=== PATIENT | male | born 1995 | race Caucasian/White ===

== ENCOUNTER 2018-03-29 17:18 | Emergency (ER) | payer OTHER ==
[2018-03-29 17:22] VITALS: BP 107/68; PULSE 71; TEMP 98.3; BMI 29.8
--- NOTE | 2018-03-29 17:44 | PDOC ---
Suture Removal/Wound Check HPI - History of Present Illness Chief Complaint: Suture/Staple Removal(Here) Stated Complaint: SUTURE REMOVAL HERE Time Seen by Provider: 03/29/18 17:30 History Source: Yes: Patient Exam Limitations: Yes: Clinical Condition Treated at: [facility] ED Date of Last ED visit: 03/23/18 - Previous ED Treatment Type of procedure performed on last visit: Yes: Laceration Repair Tetanus Immunization: Yes: Up to Date Antibiotics Prescribed: Yes - Onset of Previous Treatment Date of Occurence: 03/23/18 Select one - (for the option above): Days (patient present for suture removal 1day early than instructed due to work with laceration to back of left hand requiring 8 suture placement 6 days ago. Denies redness, drainage or discharge from wound. Denies pain now) Past History - Past Medical History Allergies/Adverse Reactions: Allergies Allergy/AdvReac Type Severity Reaction Status Date / Time No Known Allergies Allergy Verified 03/29/18 17:22 Home Medications: Ambulatory Orders NK [No Known Home Medication] 03/23/18 COPD: No - Immunization History Immunization Up to Date: Yes - Suicide/Smoking/Psychosocial Hx Smoking History: Never smoked Suture Removal/Wound Check PE - Physical Exam Laceration/Wound Check Symptoms: reports: None Current Severity Level: None Maximum Severity Level: None Pain Localization: None Location of Laceration/Wound: left: Hand (dorsal aspect of hand) Pain Radiation: None *Review of Systems - Review of Systems Able to Perform ROS?: Yes Constitutional: No: Chills, Fever HEENTM: No: Symptoms Reported Respiratory: No: Symptoms reported Cardiac (ROS): No: Symptoms Reported ABD/GI: No: Symptoms Reported Musculoskeletal: No: Joint Swelling, Muscle Pain (left hand), Muscle Weakness *Physical Exam - Vital Signs Last Vital Signs Temp Pulse Resp BP Pulse Ox 98.3 F 71 18 107/68 99 03/29/18 17:19 03/29/18 17:19 03/29/18 17:19 03/29/18 17:19 03/29/18 17:19 - Physical Exam Comments: 03/29/18 17:50 GENERAL: Well developed, well nourished. Awake and alert. No acute distress. CARDIOVASCULAR: Regular rate and rhythm. No murmurs, rubs, or gallops. PULMONARY: No evidence of respiratory distress. Lungs clear to auscultation bilaterally. No wheezing, rales or rhonchi. ABDOMINAL: Soft. Non-tender. Non-distended. No rebound or guarding. No organomegaly. Normoactive bowel sounds MUSCULOSKELETAL : Well healing 3 cm laceration with [address] to dorsal aspects of left hand. No erythema or wound dehiscence. No evidence of wound infection to area. Bony deformities EXTREMITIES: No cyanosis. No clubbing. No edema. No calf tenderness. SKIN: Well healing 3 cm laceration with [address] to dorsal aspects of left hand. No erythema or wound dehiscence. No evidence of wound infection to area. NEUROLOGICAL: Alert, awake, appropriate. No motor deficits in the lower extremities. Gait is normal without ataxia. PSYCHIATRIC: Cooperative. Good eye contact. Appropriate mood and affect. General Appearance: Yes: Nourished, Appropriately Dressed. No: Apparent Distress Medical Decision Making - Medical Decision Making 03/29/18 17:52 Patient with no sig Past medical history presented for suture removal status post presenting 6 days ago with laceration to back of left hand from a glass. Patient came in the early as instructed for suture removal due to work. Exam shows well healing linear laceration to back of left hand with [address]. Sutures removed without complication. Bacitracin applied to wound and Steri-Strips applied to wound. Patient educated on home wound care. *DC/Admit/Observation/Transfer Diagnosis at time of Disposition: Laceration - Discharge Dispostion Disposition: HOME Condition at time of disposition: Stable Decision to Admit order: No - Referrals - Patient Instructions Printed Discharge Instructions: DI for Suture Removal Additional Instructions: Keep Steri-Strips on wound for another 4 days. Apply Neosporin to wound twice a day after Steri-Strips removal until healed. Follow-up as needed - Post Discharge Activity
== END 2018-03-29 17:48 | disposition home or self-care (01) ==
LOC: JERFT 17:18
DX: Z48.02 Encounter for removal of sutures (principal)
CPT/HCPCS: 99281-25

== ENCOUNTER 2018-11-17 09:07 | Emergency (ER) | payer OTHER ==
[2018-11-17 09:18] VITALS: BP 117/52; PULSE 63; TEMP 97.9; BMI 26.6
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
== END 2018-11-17 10:14 | disposition home or self-care (01) ==
LOC: JERFT 09:07
PROC: 4A07X0Z Measurement of Visual Acuity, External Approach (ICD-10-PCS; principal; 2018-11-17)
DX: S05.8X2A Other injuries of left eye and orbit, initial encounter (principal); T52.0X1A Toxic effect of petroleum products, accidental (unintentional), initial encounter; Y93.89 Activity, other specified; Y92.69 Other specified industrial and construction area as the place of occurrence of the external cause; Y99.0 Civilian activity done for income or pay
CPT/HCPCS: 99281-25

== ENCOUNTER 2018-12-03 22:03 | Emergency (ER) | payer OTHER ==
[2018-12-03 22:16] VITALS: BP 141/91; PULSE 62; TEMP 98; BMI 26.4
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
== END 2018-12-04 00:45 | disposition home or self-care (01) ==
LOC: JER 22:03
DX: M54.2 Cervicalgia (principal); R51 Headache; V43.52XA Car driver injured in collision with other type car in traffic accident, initial encounter; Y92.410 Unspecified street and highway as the place of occurrence of the external cause; Y93.89 Activity, other specified; Y99.8 Other external cause status
CPT/HCPCS: 99283-25